=== PATIENT | female | born 1985 | race Two or more races ===

== ENCOUNTER 2022-05-09 03:59 | Emergency (ER) | payer OTHER ==
[~2022-05-09] VITALS: Ht 157.5 cm; Wt 111.3 kg
[2022-05-09 04:23] VITALS: BP 107/53
== END 2022-05-09 05:35 | disposition home or self-care (01) ==
LOC: ER 03:59
DX: T22.112A Burn of first degree of left forearm, initial encounter (principal); E11.9 Type 2 diabetes mellitus without complications; T79.9XXA Unspecified early complication of trauma, initial encounter; Z90.49 Acquired absence of other specified parts of digestive tract; Z98.890 Other specified postprocedural states; X19.XXXA Contact with other heat and hot substances, initial encounter; Y93.89 Activity, other specified; Y92.89 Other specified places as the place of occurrence of the external cause; Y99.8 Other external cause status

== ENCOUNTER → 2024-08-13 | Outpatient (CLI) | payer MEDICAID ==
--- NOTE | 2024-08-17 16:55 | DVHSR ---
APPROVED REPORT EXAM: Two-dimensional and M-mode echocardiogram with Doppler and color Doppler. DIMENSIONS LVDd3.8 (3.8-5.7cm)LA (2D)3.5 (1.9-4.0cm)Aortic Root2.8 (2.0-3.7cm) LVDs2.6 (2.5-4.0cm)LA (MM) (1.9-4.0cm)Aortic Cusp Exc1.6 (1.5-2.0cm) EF (%) 60.2 (55-70%)Rt. Atrium3.5 (1.9-4.0cm)Asc. Aorta cm IVSd0.8 (0.7-1.1cm)RV (D)2.6 (1.8-2.4cm) PWd0.8 (0.7-1.1cm) Mitral Valve MitralMitral Stenosis E wave0.84m/sMV Mean GR.mmHg A wave0.65m/sMV Peak GR.mmHg E/A ratio1.32D MVAcm2 DECEL [id number] 1/2 Timems Aortic Valve Aortic ValveAortic Stenosis V11.08m/Brittnee Mean GR.4mmHg V21.44m/Brittnee Peak GR.8mmHg Pulmonic Valve V20.78m/s Tricuspid Valve TR Velocity1.64m/s [id number] LEFT VENTRICLE The Ejection Fraction is >55%. ATRIA The left atrial size is normal. The right atrium size is normal. MITRAL VALVE The mitral valve is normal in structure and function. There is no mitral valve regurgitation noted. PULMONIC VALVE The pulmonic valve is not well visualized. TRICUSPID VALVE The tricuspid valve is grossly normal. There is trace tricuspid regurgitation. AORTIC VALVE The aortic valve opens well. No aortic regurgitation is present. GREAT VESSELS The aortic root is normal size. PERICARDIAL EFFUSION There is no pericardial effusion. Conclusion EF >55%
== END | disposition home or self-care (01) ==
LOC: Rad HDHVI 10:01
PROVIDERS: ATTEND Internal Medicine Cardiovascular Disease
DX: R06.02 Shortness of breath (principal)
CPT/HCPCS: 93306

== ENCOUNTER → 2024-08-26 | Outpatient (CLI) | payer MEDICAID ==
[~2024-08-26] VITALS: Ht 157.5 cm; Wt 94.8 kg
--- NOTE | 2024-08-31 13:41 | DVHSR ---
APPROVED REPORT Exam: Nuclear Stress Test Indication: Pre-Operative CV evaluation Ht: 5 ft 2 in Wt: 209 lbs BSA: 1.95 m2 HR: 54 bpm BP: 93/53 mmHg BMI: 38.22 Rhythm: Bradycardia Medical History Medical History: Diabetes Medications: Metformin Allergies: No known drug allergies Stress Test Details Stress Test: Exercise stress testing was performed using a Tony protocol. HR Resting HR: 54 bpmMax Heart Rate (APMHR): 182.945749 bpm Max HR Achieved: 164 bpmTarget HR (85% APMHR): 154.094339 bpm % of APMHR: 90.11 Recovery HR: 86 bpm HR response to stress: Normal HR response to stress BP Resting BP: 93/53 mmHg Max BP: 121/67 mmHg Recovery BP: 110/47 mmHg BP response to stress: Normal blood pressure response to stress. ECG Resting ECG: Sinus Bradycardia Stress ECG: Sinus Tachycardia Arrhythmia: None Recovery ECG: Sinus Rhythm Clinical Reason for Termination: Target HR achieved Stress Symptoms: None Exercise duration: 8 min 51 sec Exercise capacity: 10.1 METs Stress ECG Conclusion EF>55% NON ISCHEMIC CLINICAL RESPONSE NON ISCHEMIC ECG RESPONSE NON ISCHEMIC CARDIAC PERFUSION SCAN NM EXAM: Myocardial Perfusion REST/STRESS Imaging Protocol: Rest Tc-99m/Stress Tc-99m 1 day Resting Data Rest SPECT myocardial perfusion imaging was performed in supine position 30 minutes following the int ravenous injection of 10.89 mCi of Tc-99m Sestamibi. Time of rest injection: 37 Date: 08/26/2024 Time of rest imagin Date: 08/26/2024 Administration Route: IV Administration Site: Right Arm Exercise Stress At peak stress, the patient was injected intravenously with 31 mCi of Tc-99m Sestamibi. Time of stress injection: 1110 Date: 08/26/2024 Time of stress imagin Date: 08/26/2024 Administration Route: IV Administration Site: Right Arm Heart Rate at time of stress injection: 164 bpm. Patient continued to exercise for 1 minute(s). Gated Stress SPECT was performed 15 minutes after stress injection. The images were gated to evaluate regional wall motion and calculate left ventricular ejection fracti on. Comments Cardiolite injection at 7 minutes, 39 seconds into test. Study Data Post stress, the left ventricular ejection was >55%.. Nuclear Conclusion ECG Findings: negative for ischemia Clinical Findings: negative for ischemia Nuclear Findings: negative for ischemia Left Ventricular Function: normal EF>55% NON ISCHEMIC CLINICAL RESPONSE NON ISCHEMIC ECG RESPONSE NON ISCHEMIC CARDIAC PERFUSION SCAN
== END | disposition home or self-care (01) ==
LOC: Rad HDHVI 09:15
PROVIDERS: ATTEND Internal Medicine Cardiovascular Disease
DX: Z01.810 Encounter for preprocedural cardiovascular examination (principal); R00.0 Tachycardia, unspecified; R00.1 Bradycardia, unspecified; E11.9 Type 2 diabetes mellitus without complications; R94.31 Abnormal electrocardiogram [ECG] [EKG]; R06.02 Shortness of breath
CPT/HCPCS: 78452; 93017; A9500; 96374